=== PATIENT | male | born 1945 | race Two or more races ===

== ENCOUNTER 2024-04-10 11:34 | Inpatient (IN) | payer MEDICAID, OTHER ==
[~2024-04-10] VITALS: Ht 167.6 cm; Wt 67.2 kg
--- NOTE | 2024-04-10 12:23 | DVH ---
Exam: CT CT AB PEL WO CON-NO ORAL OR IV History: Left flank pain Comparison Study: None Technique: Multidetector spiral CT of the abdomen and pelvis was performed from lung bases to pubic symphysis. Imaging was performed without IV contrast. Axial, coronal and sagittal multiplanar reform ats were obtained from the axial data set by the technologist. Radiation dose : Abdomen/Pelvis: CTDIvol 7 mGy, DLP 411.05 mGy*cm. Findings: Evaluation of solid organs is limited due to lack of intravenous contrast use. Lung Bases: No acute or significant lung base finding. Normal heart size. No pleural or pericardial effusion. Liver: The liver is normal in size. No focal lesions. Gallbladder and biliary Tree: Unremarkable Spleen: Unremarkable Pancreas: The pancreas is grossly normal in appearance. Adrenal Glands: Unremarkable Kidneys: Bilateral renal cysts. No hydronephrosis or nephrolithiasis. Bladder: Grossly unremarkable for degree of distention. Bowel: The stomach is grossly normal in appearance. Small bowel and colon are normal in caliber and d istribution. The appendix is not visualized; however, no secondary findings of acute appendicitis id entified. Ascites: Absent Lymphadenopathy: Bulky retroperitoneal lymphadenopathy with largest conglomerate [place] mass measuring up to 56 mm. Abdominal wall and Mesentery: Unremarkable. Vasculature: Calcified atherosclerotic disease. Pelvic Organs: Unremarkable Musculoskeletal: Multilevel degenerative changes in the spine. IMPRESSION: 1. Limited by significant motion. Bulky retroperitoneal lymphadenopathy concerning for malignancy. Recommend further evaluation with CT of the abdomen and pelvis with intravenous contrast. May ultimat yue need CT-guided biopsy of retroperitoneal lymphadenopathy for tissue diagnosis. Radiation optimization: All CT scans at this facility use at least one of these dose optimization singh hniques: Automated exposure control mA and/or kV adjustment per patient size (includes targeted exams where dose is matched to clinical indication) or iterative reconstruction. HS:Y
[2024-04-10] MEDS: ONDANSETRON ODT 4 MG TAB PO ONE (12:38)
[2024-04-10] MEDS: ACETAMINOPHEN 325 MG TAB PO ONE (12:38)
[2024-04-10] MEDS: FAMOTIDINE 20 MG TAB PO ONE (12:38)
[2024-04-10 12:45] LABS: Basophils # (auto) 0 10 ^3/uL (0-0.2); Basophils % (auto) 0.2 % (0.0-2.0); Eosinophils # (auto) 0.1 10 ^3/uL (0-0.8); Eosinophils % (auto) 0.7 % (0.0-7.0); Hematocrit 33.2 % (41.0-53.0); Hemoglobin 11.3 g/dL (13.5-17.5); Lymphocytes # (auto) 0.8 10 ^3/uL (0.4-5.4); Lymphocytes % (auto) 6.4 % (10.0-50.0); Mean Corpuscular Hemoglobin 27.4 pg (28.0-32.0); Mean Corpuscular Hgb Conc. 34.2 g/dL (32.0-36.0); Mean Corpuscular Volume 80.3 fL (80.0-100.0); Monocytes # (auto) 1.6 10 ^3/uL (0-1.3); Monocytes % (auto) 13.2 % (0.0-12.0); Neutrophils # (auto) 9.7 10 ^3/uL (1.6-8.6); Neutrophils % (auto) 79.5 % (37.0-80.0); Nucleated Red Blood Cells % 0.1 %; Platelet Count (auto) 302 10^3/uL (140-450); Red Blood Cells 4.13 10^6/uL (4.5-5.90); Red Cell Distribution Width 15.2 % (11.8-14.3); White Blood Cell 12.2 10^3/uL (4.4-10.8)
[2024-04-10 13:01] LABS: Alanine Aminotransferase 28 U/L (7-40); Albumin 4.3 g/dL (3.2-4.8); Anion Gap 8 (5-15); Aspartate Aminotransferase 26 U/L (13-40); Bilirubin, Total 0.7 mg/dL (0.2-1.0); Blood Urea Nitrogen 14 mg/dL (9-23); Calcium 10.2 mg/dL (8.7-10.4); Carbon Dioxide 27 mmol/L (20-31); Lipase 29 U/L (12-53); Potassium 4.4 mmol/L (3.5-5.1); Total Protein 7.6 g/dL (5.7-8.2)
[2024-04-10 13:05] LABS: Alkaline Phosphatase 126 U/L (46-116); Chloride 90 mmol/L (98-107); Glucose 115 mg/dL (74-106); Sodium 125 mmol/L (136-145)
--- NOTE | 2024-04-10 13:39 | ED.PDOC ---
GI ASSESSMENT HPI Comments 79y M who presents to the ED for chief complaint of abdominal pain. Pt states he has been having abdomianl pain for the past few days getting progressively worse. Pt states the pain is located by the epigastric region, radiating to the LUQ, constant, with no associated exacerbating or relieving factors.Pt has associated nausea but denies vomiting, diarrhea, fever, cough, or chills. Pt otherwise denies any other symptoms at this time. Chief Complaint: Abdominal Pain Time Seen by MD: 13:36 Reviewed Notes: Nurses Notes Allergies: Coded Allergies: NO KNOWN ALLERGIES (Unverified , 04/10/24) Information Source: Patient, Relative Mode of Arrival: Ambulatory Brought in by: family member Past Medical History PAST MEDICAL HISTORY: Denies Surgical History: Unknown Family History Family History: Unknown Social History Smoker: Non-Smoker Alcohol: Denies ETOH Use Drugs: Denies Drug Use Lives In: Home Constitutional: denies: chills, diaphoresis, fatigue, fever, malaise, sweats, weakness, others EENTM: denies: blurred vision, double vision, ear bleeding, ear discharge, ear drainage, ear pain, ear ringing, eye pain, eye redness, hearing loss, mouth pain, mouth swelling, nasal discharge, nose bleeding, nose congestion, nose pain, photophobia, tearing, throat pain, throat swelling, voice changes, others Respiratory: denies: cough, hemoptysis, orthopnea, SOB at rest, shortness of breath, SOB with excertion, stridor, wheezing, others Cardiovascular: denies: chest pain, dizzy spells, diaphoresis, Dyspnea on exertion, edema, irregular heart beat, left arm pain, lightheadedness, palpitations, PND, syncope, others Gastrointestinal: reports: abdominal pain, nausea; denies: abdomen distended, blood streaked bowels, constipated, diarrhea, dysphagia, difficulty swallowing, hematemesis, melena, poor appetite, poor fluid intake, rectal bleeding, rectal pain, vomiting, others Genitourinary: denies: burning, dysuria, flank pain, frequency, hematuria, incontinence, penile discharge, penile sore, pain, testicle pain, testicle swelling, urgency, others Neurological: denies: dizziness, fainting, headache, left sided numbness, left sided weakness, numbness, paresthesia, pre-existing deficit, right sided nu mbness, right sided weakness, seizure, speech problems, tingling, tremors, weakness, others Musculoskeletal: denies: back pain, gout, joint pain, joint swelling, muscle pain, muscle stiffness, neck pain, others Integumetry: denies: bruises, change in color, change in hair/nails, dryness, laceration, lesions, lumps, rash, wounds, others Allergic/Immunocompromised: denies: Difficulty Healing, Frequent Infections, Hives, Itching, others Hematologic/Lymphatic: denies: anemia, blood clots, easy bleeding, easy bruising, swollen glands, others Endocrine: denies: excessive hunger, excessive sweating, excessive thirst, excessive urination, flushing, intolerance to cold, intolerance to heat, unexplained weight gain, unexplained weight loss, others Psychiatric: denies: anxiety, bipolar disorder, depression, hopeless, panic disorder, schizophrenia, sleepless, suicidal, others All Other Systems: Reviewed and Negative Physical Exam General Appearance: Moderate Distress, Thin HEENT: Normal ENT Inspection, Pharynx Normal, TMs Normal Neck: Full Range of Motion, Non-Tender, Normal, Normal Inspection Respiratory: Chest Non-Tender, Lungs Clear, No Accessory Muscle Use, No Respiratory Distress, Normal Breath Sounds Cardiovascular: No Edema, No JVD, No Murmur, No Gallop, Normal Peripheral Pulses, Regular Rate/Rhythm Breast Exam: Deferred Gastrointestinal: Soft, Tenderness, Other (mild diffuse tenderness) Genitalia: Deferred Pelvic: Deferred Rectal: Deferred Extremities: No calf tenderness, Normal capillary refill, Normal inspection, Normal range of motion, Non-tender, No pedal edema Musculoskeletal : Apperance: Normal Neurologic: Alert, certified personal trainer II-XII nml as Tested, No Motor Deficits, Normal Affect, Normal Mood, No Sensory Deficits Cerebellar Function: Normal Reflexes: Normal Skin: Dry, Normal Color, Warm Lymphatic: No Adenopathy Was a procedure done? Was a procedure done?: No GI differential Dx Differential Diagnosis: Appendicitis, Cholangitis, Cholecystitis, Constipation, Diverticular disease, Gastritis/PUD, Gastroenteritis, Pancreatitis, Dehydration, Electrolyte Imbalance, Food Poisoning, Bacterial, Viral, Stress Ulcer, Kidney Stone Other Differential Diagnosis colitis, X-Ray, Labs, Meds, VS Vital Signs Date Time Temp Pulse Resp B/P (MAP) Pulse Ox O2 Delivery O2 Flow Rate FiO2 1/28/25 12:31 77 17 97 Room Air 04/10/24 12:31 98.6 77 17 131/56 (81) 97 98.6 04/10/24 12:07 99.4 75 16 138/52 (80) 95 Lab Test 04/10/24 12:20 Range/Units White Blood Count 12.2 H 4.4-10.8 10^3/uL Red Blood Count 4.13 L 4.5-5.90 10^6/uL Hemoglobin 11.3 L 13.5-17.5 g/dL Hematocrit 33.2 L 41.0-53.0 % Mean Corpuscular Volume 80.3 80.0-100.0 fL Mean Corpuscular Hemoglobin 27.4 L 28.0-32.0 pg Mean Corpuscular Hemoglobin Concent 34.2 32.0-36.0 g/dL Red Cell Distribution Width 15.2 H 11.8-14.3 % Platelet Count 302 140-450 10^3/uL Mean Platelet Volume 6.6 L 6.9-10.8 fL Neutrophils (%) (Auto) 79.5 37.0-80.0 % Lymphocytes (%) (Auto) 6.4 L 10.0-50.0 % Monocytes (%) (Auto) 13.2 H 0.0-12.0 % Eosinophils (%) (Auto) 0.7 0.0-7.0 % Basophils (%) (Auto) 0.2 0.0-2.0 % Neutrophils # (Auto) 9.7 H 1.6-8.6 10 ^3/uL Lymphocytes # (Auto) 0.8 0.4-5.4 10 ^3/uL Monocytes # (Auto) 1.6 H 0-1.3 10 ^3/uL Eosinophils # (Auto) 0.1 0-0.8 10 ^3/uL Basophils # (Auto) 0 0-0.2 10 ^3/uL Nucleated Red Blood Cells 0.1 % Sodium Level 125 L 136-145 mmol/L Potassium Level 4.4 3.5-5.1 mmol/L Chloride Level 90 L 98-107 mmol/L Carbon Dioxide Level 27 20-31 mmol/L Anion Gap 8 5-15 Blood Urea Nitrogen 14 9-23 mg/dL Creatinine 0.56 L 0.700-1.30 mg/dL Glomerular Filtration Rate Calc 101 >90 mL/min BUN/Creatinine Ratio 25.0 H 10.0-20.0 Serum Glucose 115 H 74-106 mg/dL Calcium Level 10.2 8.7-10.4 mg/dL Total Bilirubin 0.7 0.2-1.0 mg/dL Aspartate Amino Transferase (AST) 26 13-40 U/L Alanine Aminotransferase (ALT) 28 7-40 U/L Alkaline Phosphatase 126 H 46-116 U/L Total Protein 7.6 5.7-8.2 g/dL Albumin 4.3 3.2-4.8 g/dL Lipase 29 12-53 U/L Current Medications Medications (Trade) Dose Ordered Sig/Ping Route Start Time Stop Time Status Last Admin Ondansetron HCl (Zofran Po) 4 mg ONCE ONCE PO 04/10/24 12:00 04/10/24 12:01 DC 04/10/24 12:38 Acetaminophen (Tylenol Tablet) 1,000 mg ONCE ONCE PO 04/10/24 12:00 04/10/24 12:01 DC 04/10/24 12:38 Famotidine (Pepcid Tablet) 40 mg ONCE ONCE PO 04/10/24 12:00 04/10/24 12:01 DC 04/10/24 12:38 Sodium Chloride 1,000 ml @ 1,000 mls/hr Q1H ONCE IV 04/10/24 13:45 04/10/24 14:44 04/10/24 13:53 [place] [id number] Ph: [phone] DIAGNOSTIC IMAGING Diagnostic Imaging Report : [id number] Signed PATIENT: DANIKA YUSUF ACCT: [id number] UNIT: [id number] : 1945 LOC: ER ROOM / BED: / AGE / SEX: 79 / M ADM STATUS: REG ER SERVICE 1155 ORDERING PHYSICIAN: VERA WILSON MD PROCEDURE(s): ABPL - CT AB PEL WO CON-NO ORAL OR IV REASON: Left flank pain ORDER NUMBER(s): [id number], ACCESSION NUMBER(s): [id number] Exam: CT CT AB PEL WO CON-NO ORAL OR IV History: Left flank pain Comparison Study: None Technique: Multidetector spiral CT of the abdomen and pelvis was performed from lung bases to pubic symphysis. Imaging was performed without IV contrast. Axial, coronal and sagittal multiplanar reformats were obtained from the axial data set by the technologist. Radiation dose : Abdomen/Pelvis: CTDIvol 7 mGy, DLP 411.05 mGy*cm. Findings: Evaluation of solid organs is limited due to lack of intravenous contrast use. Lung Bases: No acute or significant lung base finding. Normal heart size. No pleural or pericardial effusion. Liver: The liver is normal in size. No focal lesions. Gallbladder and biliary Tree: Unremarkable Spleen: Unremarkable Pancreas: The pancreas is grossly normal in appearance. Adrenal Glands: Unremarkable Kidneys: Bilateral renal cysts. No hydronephrosis or nephrolithiasis. Bladder: Grossly unremarkable for degree of distention. Bowel: The stomach is grossly normal in appearance. Small bowel and colon are normal in caliber and distribution. The appendix is not visualized; however, no secondary findings of acute appendicitis identified. Ascites: Absent Lymphadenopathy: Bulky retroperitoneal lymphadenopathy with largest conglomerate [place] mass measuring up to 56 mm. Abdominal wall and Mesentery: Unremarkable. Vasculature: Calcified atherosclerotic disease. Pelvic Organs: Unremarkable Musculoskeletal: Multilevel degenerative changes in the spine. IMPRESSION: 1. Limited by significant motion. Bulky retroperitoneal lymphadenopathy concerning for malignancy. Recommend further evaluation with CT of the abdomen and pelvis with intravenous contrast. May ultimately need CT-guided biopsy of retroperitoneal lymphadenopathy for tissue diagnosis. Radiation optimization: All CT scans at this facility use at least one of these dose optimization techniques: Automated exposure control mA and/or kV adjustment per patient size (includes targeted exams where dose is matched to clinical indication) or iterative reconstruction. HS:Y ATED BY: STEVE AGUIRRE MD DICTATED DATE/TIME: 04/10/24 122 SIGNED BY: STEVE AGUIRRE MD SIGNED DATE/TIME: 04/10/241219 CC: Time of 1ST Reevaluation: 14:10 Reevaluation 1ST: Unchanged Time of 2ND Reevaluation: 13:55 Reevaluation 2ND: Unchanged Patient Education/Counseling: Diagnosis, Treatment Family Education/Counseling: Diagnosis, Treatment Departure 1 Departure Time of Disposition: 13:55 Impression: Primary Impression: Lymphoma Additional Impression: Hyponatremia Disposition: 09 ADMITTED INPATIENT Admit to: Med Surg Condition: Guarded Discharged With: Self Critical Care Note Critical Care Time?: Yes (45 min-critical care time only) Critical care comment: Total critical care time: Approximately 36 minutes Due to a high probability of clinically significant, life threatening deterioration, the patient required my highest level of preparedness to intervene emergently and I personally spent this critical care time directly and personally managing the patient. This critical care time included obtaining a history; examining the patient; pulse oximetry; ordering and review of studies; arranging urgent treatment with development of a management plan; evaluation of patient's response to treatment; frequent reassessment; and, discussions with other providers. This critical care time was performed to assess and manage the high probability of imminent, life-threatening deterioration that could result in multi-organ failure. It was exclusive of separately billable procedures and treating other patients. Stability Stability form required: No Heart Score Heart Score: Heart Score Response (Comments) Value History N/A 0 EKG N/A 0 Age N/A 0 Risk Factors N/A 0 Troponin N/A 0 Total 0 I personally scribed for VERA WILSON MD ([email or web address]) on 04/10/24 at 13:39. Electronically submitted by Leydi Laboy ([email or web address]). VERA WILSON MD Apr 10, 2024 13:39
[2024-04-10] MEDS: SODIUM CHLORIDE 0.9% 1,000 ML IV ONE (13:53)
[2024-04-10] MEDS ORDERED: ACETAMINOPHEN 325 MG TAB PO PRN (22:45)
[2024-04-10] MEDS ORDERED: ONDANSETRON ODT 4 MG TAB PO PRN (22:45)
[2024-04-10] MEDS: IOHEXOL 300 MG/ML 100ML BOTTLE IJ ONE (23:14)
--- NOTE | 2024-04-10 23:24 | DVH ---
EXAMINATION: AP portable chest radiograph CLINICAL HISTORY: cough COMPARISON: None FINDINGS: Mild central interstitial prominence. No lobar consolidation identified. No sizable pleural effusion or pneumothorax. The cardiomediastinal silhouette appears within normal limits given technique. Advanced arthritic changes of the left imaged shoulder. IMPRESSION: Mild central interstitial prominence is relatively nonspecific but can be seen with edema, reactive a irway changes as well as atypical / viral infection. Please correlate clinically. Otherwise no domina nt consolidation identified at this time.
[2024-04-10 23:46] VITALS: PULSE 84; RESP 19; O2SAT 94
[2024-04-11] VITALS (8 sets, daily range): BP systolic 135–170; BP diastolic 59–72; PULSE 67–79; RESP 16–20; TEMP 97.8–98.9; O2SAT 95–99
[2024-04-11] MEDS: amLODIPine BESYLATE 5 MG TAB PO ONE (00:46)
[2024-04-11] MEDS: DICYCLOMINE HCL 10 MG CAP PO PRN (01:19)
[2024-04-11] MEDS: SODIUM CHLORIDE 0.9% 1,000 ML IV SCH (01:43)
--- NOTE | 2024-04-11 02:04 | DVH ---
CLINICAL HISTORY: malignancy TECHNIQUE: CT of the chest, abdomen and pelvis was performed with IV contrast. This exam was performe d according to our departmental dose optimization program. Up-to-date CT equipment and radiation dose reduction techniques are utilized as appropriate. CTDI: [CTDIvol] DLP: 866.84 COMPARISON: None FINDINGS: CHEST FINDINGS: Lower Neck: Right supraclavicular lymphadenopathy. There is a hypodense left thyroid nodule on series 2, image 22 measuring 1.2 cm. Axilla, Mediastinum and Anahy: No axillary or hilar lymphadenopathy. Mediastinal lymphadenopathy with a large conglomerate mediastinal lymph node in the upper right mediastinum measuring 4.5 x 4.6 cm on series 2, image 31. Mild wall thickening of the esophagus. Heart and Great Vessels: Upper limits of normal sized heart with trace pericardial effusion. Moderate aortic valve calcifications. Thoracic aorta is patent and normal caliber containing [id number] e calcified atherosclerotic plaque. Arch origin of the left vertebral artery, normal variant. The sagrario tral pulmonary arteries are patent. 3-vessel coronary artery calcifications up to moderate. Airway, Lungs and Pleura: Unremarkable. Chest Wall and Osseous Structures: Marked left and [id number] right glenohumeral arthrosis. M ultilevel thoracic spondylosis. No destructive osseous lesion. Abdomen and Pelvis Findings: Liver and Biliary system: Unremarkable. Spleen: Unremarkable. Adrenal Glands and Kidneys: Mild Thickening of the bilateral adrenal glands. No hydronephrosis or nep hrolithiasis. There are bilateral renal cysts although some renal hypodensities are too small to vero racterize Pancreas and Retroperitoneum: Atrophic pancreas. Conglomerate retroperitoneal lymphadenopathy. A rep resentative left paratracheal lymph node measures 5.2 x 5.8 cm on series 2, image 135. Aorta and Major Vessels: Aortoiliac vessels are patent and normal caliber with [id number] calci fied atherosclerotic plaque Bowel, Mesentery and Peritoneal space: Small and large bowel loops are normal in caliber. Moderate re tained stool in the colon. Mild ascites. There is no free air or fluid collection. Pelvis: Prostatomegaly. The urinary bladder is moderately distended with mild wall thickening. No pat hologically enlarged pelvic lymph nodes. Abdominal wall and Osseous Structures: No destructive osseous lesion. Moderate multilevel lumbar spon dylosis. There is high position of the right testicle in the inguinal canal. Small fat containing lef t inguinal hernia. IMPRESSION: 1. Mediastinal, right supraclavicular, and retroperitoneal lymphadenopathy concerning for malignancy. This could be metastatic or lymphoma. 2. Moderate aortic valve and 3-vessel coronary artery calcifications. 3. Mild ascites. 4. Mild prostatomegaly and mild bladder wall thickening which may be due to chronic bladder outlet ob struction in the setting of prostatomegaly. Correlate with urinalysis if there is clinical concern f or cystitis. 5. High position of the right testicle in the right inguinal canal.
[2024-04-11] MEDS ORDERED: CARV3.1240 PO (03:05)
[2024-04-11] MEDS ORDERED: ATOR20TA PO (03:05)
[2024-04-11] MEDS ORDERED: BENA-36 PO (03:05)
[2024-04-11] MEDS ORDERED: TRAZ-228 PO (03:05)
[2024-04-11] MEDS ORDERED: GABA-1308 PO (03:07)
[2024-04-11] MEDS ORDERED: AML5T PO (03:07)
[2024-04-11] MEDS ORDERED: FAMO20TA10 PO (03:07)
[2024-04-11] MEDS ORDERED: POLYETHYLENE GLYCOL 17 GM PWDR PO ONE (03:30)
--- NOTE | 2024-04-11 03:32 | DVHHPRES ---
History of Present Illness Resident Creating Document: DYAN SHIELDS History of Present Illness Patient is a 79-year-old male with past medical history of lymphoma diagnosed 7 years ago, who came in due to abdominal pain. According to the patient, he has been experiencing abdominal pain for the past 4 days, dull in nature, 8/10 in intensity without any exacerbating or relieving factors and associated with nausea and lack of appetite. Patient localizes the pain to the midepigastric- lower abdominal area. Denies any history of recent weight loss. Patient is a poor historian. On review of systems patient is complaining of rhinorrhea, sore throat, nausea. CT abdomen pelvis showed retroperitoneal lymphadenopathy. CT chest abdomen pelvis with IV contrast was ordered which showed Mediastinal, right supraclavicular, and retroperitoneal lymphadenopathy concerning for malignancy. This could be metastatic or lymphoma.Moderate aortic valve and 3- vessel coronary artery calcifications.Mild ascites. Mild prostatomegaly and mild bladder wall thickening which may be due to chronic bladder outlet obstruction in the setting of prostatomegaly. Correlate with urinalysis if there is clinical concern for cystitis. High position of the right testicle in the right inguinal canal. Past Medical History Lymphoma Past Surgical History Denies Smoke: No ALCOHOL: none Drugs: None Lives: with Family Review of Systems Constitutional: No: Fever, Chills, Sweats, Weakness, Malaise, Other Eyes: No: Pain, Vision change, Conjunctivae inflammation, Eyelid inflammation, Other, Redness ENT: Nose discharge, Throat pain; No: Ear pain, Ear discharge, Nose pain, Nose congestion, Mouth pain, Mouth swelling, Throat swelling, Other Respiratory: No: Cough, Dry, Shortness of breath, SOB with excertion, Wheezing, Hemoptysis, Pleuritic Pain, Sputum, Wheezing, Other Cardiovascular: No: Chest Pain, Palpitations, Orthopnea, Paroxysmal Noc. Dyspnea, Edema, Lt Headedness, Other Gastrointestinal: Nausea, Abdominal Pain; No: Vomiting, Diarrhea, Constipation, Melena, Hematochezia, Other Genitourinary: No Dysuria, No Frequency, No Incontinence, No Hematuria; Retention; No Other Musculoskeletal: No: other, neck pain, shoulder pain, arm pain, back pain, hand pain, leg pain, foot pain Skin: No: Rash, Lesions, Jaundice, Bruising, Other Neurological: No: Weakness, Numbness, Incoordination, Change in speech, Confusion, Seizures, Other Allergies: Coded Allergies: NO KNOWN ALLERGIES (Unverified , 04/10/24) Medications Current Medications Medications Dose Ordered Sig/Ping Route Start Time Stop Time Status Last Admin Dose Admin Acetaminophen 650 mg Q6HP PRN PO 04/10/24 22:45 Enoxaparin Sodium 40 mg DAILY SC 04/11/24 10:00 Dicyclomine HCl 10 mg PRN PRN PO 04/10/24 22:45 04/11/24 01:19 10 MG Ondansetron HCl 4 mg Q6HP PRN PO 04/10/24 22:45 Amlodipine Besylate 5 mg DAILY PO 04/11/24 10:00 Sodium Chloride 1,000 ml @ 75 mls/hr [id number] IV 04/10/24 22:45 04/11/24 01:43 75 MLS/HR Exam Vital Signs Vital Signs Date Time Temp Pulse Resp B/P (MAP) Pulse Ox O2 Delivery O2 Flow Rate FiO2 04/11/24 03:05 70 16 170/68 (102) 98 04/11/24 01:30 97.9 97.9 04/11/24 00:47 Room Air 04/10/24 23:46 0 21 General Appearance: Alert, Oriented X3, Cooperative, No acute distress HEENT: Atraumatic, PERRLA, EOMI Respiratory: Clear to auscultation, Normal air movement Cardiovascular: Regular rate, Normal S1, Normal S2, Other (Systolic murmur heard) Abdominal: Normal bowel sounds, Other (Soft but distended, tenderness to palpation in the midepigastric area with radiation to the left upper quadrant) Extremities: No clubbing, No edema, Normal pulses Skin: No breakdown, No significant lesion Neuro: Normal gait, Normal speech, Strength at 5/5 X4 ext, Sensation intact Psych/Mental Status: Mental status NL, Mood NL Labs/Xrays Labs Test 04/10/24 23:11 04/10/24 12:20 Range/Units Serum Osmolality 272 L 278-298 mOsm/kg Lactic Acid Level 0.8 0.4-2.0 mmol/L Thyroid Stimulating Hormone (TSH) 3.50 0.55-4.78 uIU/mL White Blood Count 12.2 H 4.4-10.8 10^3/uL Red Blood Count 4.13 L 4.5-5.90 10^6/uL Hemoglobin 11.3 L 13.5-17.5 g/dL Hematocrit 33.2 L 41.0-53.0 % Mean Corpuscular Volume 80.3 80.0-100.0 fL Mean Corpuscular Hemoglobin 27.4 L 28.0-32.0 pg Mean Corpuscular Hemoglobin Concent 34.2 32.0-36.0 g/dL Red Cell Distribution Width 15.2 H 11.8-14.3 % Platelet Count 302 140-450 10^3/uL Mean Platelet Volume 6.6 L 6.9-10.8 fL Neutrophils (%) (Auto) 79.5 37.0-80.0 % Lymphocytes (%) (Auto) 6.4 L 10.0-50.0 % Monocytes (%) (Auto) 13.2 H 0.0-12.0 % Eosinophils (%) (Auto) 0.7 0.0-7.0 % Basophils (%) (Auto) 0.2 0.0-2.0 % Neutrophils # (Auto) 9.7 H 1.6-8.6 10 ^3/uL Lymphocytes # (Auto) 0.8 0.4-5.4 10 ^3/uL Monocytes # (Auto) 1.6 H 0-1.3 10 ^3/uL Eosinophils # (Auto) 0.1 0-0.8 10 ^3/uL Basophils # (Auto) 0 0-0.2 10 ^3/uL Nucleated Red Blood Cells 0.1 % Sodium Level 125 L 136-145 mmol/L Potassium Level 4.4 3.5-5.1 mmol/L Chloride Level 90 L 98-107 mmol/L Carbon Dioxide Level 27 20-31 mmol/L Anion Gap 8 5-15 Blood Urea Nitrogen 14 9-23 mg/dL Creatinine 0.56 L 0.700-1.30 mg/dL Glomerular Filtration Rate Calc 101 >90 mL/min BUN/Creatinine Ratio 25.0 H 10.0-20.0 Serum Glucose 115 H 74-106 mg/dL Calcium Level 10.2 8.7-10.4 mg/dL Total Bilirubin 0.7 0.2-1.0 mg/dL Aspartate Amino Transferase (AST) 26 13-40 U/L Alanine Aminotransferase (ALT) 28 7-40 U/L Alkaline Phosphatase 126 H 46-116 U/L Total Protein 7.6 5.7-8.2 g/dL Albumin 4.3 3.2-4.8 g/dL Lipase 29 12-53 U/L Assessment/Plan Assessment/Plan Acute intractable abdominal pain likely due to a viral syndrome vs contipation vs ileus? Mild ascites Hypotonic hyponatremia possibly SIADH - CTAP: Limited by significant motion. Bulky retroperitoneal lymphadenopathy concerning for malignancy. Recommend further evaluation with CT of the abdomen and pelvis with intravenous contrast. May ultimately need CT-guided biopsy of retroperitoneal lymphadenopathy for tissue diagnosis. - CT chest abdomen pelvis with IV contrast: Mediastinal, right supraclavicular, and retroperitoneal lymphadenopathy concerning for malignancy. This could be metastatic or lymphoma. Moderate aortic valve and 3-vessel coronary artery calcifications. Mild ascites. Mild prostatomegaly and mild bladder wall thickening which may be due to chronic bladder outlet obstruction in the setting of prostatomegaly. Correlate with urinalysis if there is clinical concern for cystitis. High position of the right testicle in the right inguinal canal. - CXR: Mild central interstitial prominence is relatively nonspecific but can be seen with edema, reactive airway changes as well as atypical / viral infection. Please correlate clinically. Otherwise no dominant consolidation identified at this time. - last bowel movement on 04/10/2024; positive bowel sounds - serum Na 125-->127; serom osm 272 - pending UA, urine sodium and urine osm - IV NS 1L bolus, IV NS @ 75cc/hr - miralax 17g - full liquid diet - dicyclomine, zofran prn - ordered echo - bladder scan - hepatitis panel Hypertension - resumed home medication amlodipine 5mg - IV hydralazine 5mg once History of lymphoma - requested records from previous hospitalization DVT prophylaxis: Levonox 40mg Goals of care: Full code, discussed for >16 minutes on 04/10/2024 Plan discussed with patient Plan discussed with Dr. Henderson Plan discussed with: Patient, Other (RN) My Orders Orders - DYAN SHIELDS RESIDENT Procedure Category Date Status Time Admit ADMIT 04/10/24 Transmitted 22:38 Code Status CODE 04/10/24 Transmitted 22:38 Vital Signs PATRICIA 04/10/24 In Process 22:38 Review Orders With PATRICIA 04/10/24 In Process Adm. 22:38 Regular Diet DIET 04/11/24 Transmitted Breakfast Acetaminophen Tablet PHA 04/10/24 In Process (Tylenol Tablet) 22:45 Advance Directive PATRICIA 04/10/24 In Process 22:38 Blood Culture VALERY 04/10/24 In Process 22:38 Urine Bacterial VALERY 04/10/24 Logged Culture 22:38 Patient Condition ORDERS 04/10/24 Transmitted 22:38 Allergies PATRICIA 04/10/24 In Process 22:38 Enoxaparin Sodium PHA 04/11/24 In Process (Lovenox) 10:00 Notify Md Of Changes PATRICIA 04/10/24 In Process From Base 22:38 Urine Sodium LAB 04/10/24 Logged 22:38 Urinalysis LAB 04/10/24 Logged 22:38 Chest Portable XY 04/10/24 Resulted 22:38 Echo 2d Mode Cardiac US 04/10/24 Logged DOP 22:38 Full Liq Diet DIET 04/11/24 Transmitted Breakfast Dicyclomine Capsule PHA 04/10/24 In Process (Bentyl Capsule) 22:45 Ondansetron Po PHA 04/10/24 In Process (Zofran Po) 22:45 Amlodipine Tablet PHA 04/11/24 In Process (Norvasc Tablet) 10:00 Sodium Chloride 0.9% PHA 04/10/24 In Process 22:45 Ct Chest/Ab/Pl W Con- CT 04/10/24 Resulted Iv Only 22:46 Sodium LAB 04/11/24 Logged 03:13 Rapid Influenza A&B LAB 04/11/24 Logged 03:14 Covid19 Antigen Paula LAB 04/11/24 Logged Bladder Scan ORDERS 04/11/24 Transmitted 03:14 Ebv Acute Infection LAB 04/11/24 Logged Antibodies 03:14 Rapid Strep Screen - LAB 04/11/24 Logged Throat 03:14 Acute Hepatitis Panel LAB 04/11/24 Logged 03:14 Date of Service: Apr 10, 2024 Billing Provider: SHAHANA ARZOLA MD Common Visit Codes: 07823-[id number] INP/OBS CARE (HIGH) DYAN SHIELDS RESIDENT Apr 11, 2024 03:32 SHAHANA ARZOLA MD Apr 11, 2024 23:15
[2024-04-11] MEDS: hydrALAZINE HCL 20 MG/ML VL IV ONE (03:57)
[2024-04-11] MEDS: MELATONIN 5 MG TAB PO ONE (04:14)
[2024-04-11 04:18] LABS: Basophils # (auto) 0 10 ^3/uL (0-0.2); Basophils % (auto) 0.4 % (0.0-2.0); Eosinophils # (auto) 0.1 10 ^3/uL (0-0.8); Eosinophils % (auto) 1.5 % (0.0-7.0); Hematocrit 31.9 % (41.0-53.0); Lymphocytes # (auto) 0.6 10 ^3/uL (0.4-5.4); Lymphocytes % (auto) 6.9 % (10.0-50.0); Mean Corpuscular Hemoglobin 27.9 pg (28.0-32.0); Mean Corpuscular Hgb Conc. 34.5 g/dL (32.0-36.0); Monocytes # (auto) 1.3 10 ^3/uL (0-1.3); Monocytes % (auto) 14.4 % (0.0-12.0); Neutrophils # (auto) 6.7 10 ^3/uL (1.6-8.6); Neutrophils % (auto) 76.8 % (37.0-80.0); Platelet Count (auto) 278 10^3/uL (140-450); Red Blood Cells 3.94 10^6/uL (4.5-5.90); Red Cell Distribution Width 15.2 % (11.8-14.3); White Blood Cell 8.7 10^3/uL (4.4-10.8)
[2024-04-11 04:29] LABS: Rapid Strep A Screen-Throat Negative
[2024-04-11 05:03] LABS: COVID19 ANTIGEN SOFIA FIA NEGATIVE (NEGATIVE); Rapid Influenza A Negative (Negative); Rapid Influenza B Negative (Negative)
[2024-04-11 05:07] LABS: Potassium 3.7 mmol/L (3.5-5.1)
[2024-04-11 05:08] LABS: Anion Gap 8 (5-15); Carbon Dioxide 26 mmol/L (20-31)
[2024-04-11 05:09] LABS: Calcium 9.8 mg/dL (8.7-10.4)
[2024-04-11 05:14] LABS: BUN/Creatinine Ratio 15.7 (10.0-20.0)
[2024-04-11 05:15] LABS: Blood Urea Nitrogen 8 mg/dL (9-23); Chloride 93 mmol/L (98-107); Glucose 121 mg/dL (74-106); Sodium 127 mmol/L (136-145)
[2024-04-11] MEDS: HYDROmorphone HCL 2 MG/ML VL/or syr IV ONE (05:17)
--- NOTE | 2024-04-11 06:02 | DVH ---
ABDOMINAL RADIOGRAPH Indication: Severe pain Technique: 2 frontal radiographs of the abdomen were obtained Comparison: None FINDINGS: Lines and tubes: None There is gaseous distention of small and large bowel loops. No supine radiographic evidence of pneumo peritoneum. Bony structures unremarkable. IMPRESSION: 1. Gaseous distention of small and large bowel loops which may represent ileus in the appropriate cli nical setting.
[2024-04-11] MEDS: amLODIPine BESYLATE 5 MG TAB PO SCH (09:36)
[2024-04-11] MEDS: ENOXAPARIN SOD 40 MG/0.4 ML SYRINGE SC SCH (09:36)
[2024-04-11] MEDS ORDERED: ENOXAPARIN SOD 40 MG/0.4 ML SYRINGE SC SCH (10:00)
--- NOTE | 2024-04-11 14:25 | DVHSR ---
APPROVED REPORT EXAM: Two-dimensional and M-mode echocardiogram with Doppler and color Doppler. Blood Pressure: 144/57 mmHg INDICATION Cough RISK FACTORS Height: 5'6", Weight: 148 DIMENSIONS LVDd4.5 (3.8-5.7cm)LA (2D)4.6 (1.9-4.0cm)Aortic Root3.4 (2.0-3.7cm) LVDs2.6 (2.5-4.0cm)LA (MM) (1.9-4.0cm)Aortic Cusp Exc0.9 (1.5-2.0cm) EF (%) 65.0 (55-70%)Rt. Atrium4.2 (1.9-4.0cm)Asc. Aorta3.6 cm IVSd1.3 (0.7-1.1cm)RV (D)3.4 (1.8-2.4cm) PWd1.0 (0.7-1.1cm) Mitral Valve MitralMitral Stenosis E wave0.69m/sMV Mean GR.mmHg A wave1.00m/sMV Peak GR.mmHg E/A ratio0.72D MVAcm2 DECEL [id number] 1/2 Timems Aortic Valve Aortic ValveAortic Stenosis V10.86m/Javi Mean GR.19mmHg V22.90m/Javi Peak GR.34mmHg LVOT Diameter2.4 (1.8-2.4cm)Doppler AVA1.34cm2 AI P 1/2 Fkmt357.85ms Pulmonic Valve V21.03m/s Tricuspid Valve TR Velocity2.31m/s [id number] LEFT VENTRICLE The left ventricle is of normal size. Wall thickness is mildly increased most prominent in the septu m. Ejection fraction is normal and is estimated at 65%. There is no gross wall motion abnormalities . There is grade II diastolic dysfunction with evidence of elevated left-sided filling pressure. RIGHT VENTRICLE The right ventricle is of normal size. Systolic function is normal. ATRIA The left atrium is mildly dilated in size. Right atrium is of normal size. Intra-atrial septum is l ikely normal. MITRAL VALVE Normal in structure and function. No significant mitral regurgitation. PULMONIC VALVE Likely normal. TRICUSPID VALVE Normal structure and function. There is mild tricuspid regurgitation. PA systolic pressure is estim ated at 30-35 mm Hg. AORTIC VALVE The aortic valve leaflets are moderately to severely calcified. There is moderate aortic valve steno sis with a peak velocity of 2.9 m/sec and a mean gradient of 19 mm Hg. There is [id number] ins ufficiency. Aortic valve area is estimated at 1.3 cm2. GREAT VESSELS The aortic root and proximal ascending aorta are of normal size. PERICARDIAL EFFUSION No significant effusion. IVC is of normal size and collapses normally with inspiration. Conclusion Calcified aortic valve with moderate aortic stenosis and [id number] insufficiency. Normal left ventricular size and systolic function. Ejection fraction is estimated at 65%. Normal right ventricular size and systolic function. Grade diastolic dysfunction with evidence of elevated left-sided filling pressure. PA systolic pressure is estimated at 30-35 mm Hg.
[2024-04-11] MEDS ORDERED: LEVO750T40 PO ×2 (14:37→20:03)
[2024-04-11] MEDS: hydrALAZINE HCL 20 MG/ML VL IV PRN (15:39)
--- NOTE | 2024-04-11 15:54 | DVHDSRES ---
Discharge Summary Date of Admission Resident Creating Document: ZENAJO-ANN TRENT RESIDENT Apr 10, 2024 at 22:38 Date of Discharge: Apr 11, 2024 Admitting Diagnosis Abdominal pain Labs/Diagnostic Data: PATIENT: GOPI TRAN: [id number] UNIT: [id number] : 1945 LOC: EAST ROOM / BED: 0246 / B AGE / SEX: 79 / M ADM STATUS: ADM IN SERVICE 0453 ORDERING PHYSICIAN: DYAN SHIELDS PROCEDURE(s): KUB - KUB ABDOMEN SINGLE VIEW REASON: severe pain ORDER NUMBER(s): [id number], ACCESSION NUMBER(s): [id number] ABDOMINAL RADIOGRAPH Indication: Severe pain Technique: 2 frontal radiographs of the abdomen were obtained Comparison: None FINDINGS: Lines and tubes: None There is gaseous distention of small and large bowel loops. No supine radiographic evidence of pneumoperitoneum. Bony structures unremarkable. IMPRESSION: 1. Gaseous distention of small and large bowel loops which may represent ileus in the appropriate clinical setting. ENT: IDA TRANCT: [id number] UNIT: [id number] : 1945 LOC: OVERFLOW ROOM / BED: [facility] / A AGE / SEX: 79 / M ADM STATUS: ADM IN SERVICE 2246 ORDERING PHYSICIAN: DYAN SHIELDS PROCEDURE(s): CAPIV - CT CHEST/AB/PL W CON- IV ONLY REASON: malignancy ORDER NUMBER(s): [id number], ACCESSION NUMBER(s): [id number] CLINICAL HISTORY: malignancy TECHNIQUE: CT of the chest, abdomen and pelvis was performed with IV contrast. This exam was performed according to our departmental dose optimization program. Up-to-date CT equipment and radiation dose reduction techniques are utilized as appropriate. CTDI: [CTDIvol] DLP: 866.84 COMPARISON: None FINDINGS: CHEST FINDINGS: Lower Neck: Right supraclavicular lymphadenopathy. There is a hypodense left thyroid nodule on series 2, image 22 measuring 1.2 cm. Axilla, Mediastinum and Anahy: No axillary or hilar lymphadenopathy. Mediastinal lymphadenopathy with a large conglomerate mediastinal lymph node in the upper right mediastinum measuring 4.5 x 4.6 cm on series 2, image 31. Mild wall thickening of the esophagus. Heart and Great Vessels: Upper limits of normal sized heart with trace pericardial effusion. Moderate aortic valve calcifications. Thoracic aorta is patent and normal caliber containing wquq-vk-rmzoviit calcified atherosclerotic plaque. Arch origin of the left vertebral artery, normal variant. The central pulmonary arteries are patent. 3-vessel coronary artery calcifications up to moderate. Airway, Lungs and Pleura: Unremarkable. Chest Wall and Osseous Structures: Marked left and nvkhnztk-vm-cvlsbs right glenohumeral arthrosis. Multilevel thoracic spondylosis. No destructive osseous lesion. Abdomen and Pelvis Findings: Liver and Biliary system: Unremarkable. Spleen: Unremarkable. Adrenal Glands and Kidneys: Mild Thickening of the bilateral adrenal glands. No hydronephrosis or nephrolithiasis. There are bilateral renal cysts although some renal hypodensities are too small to characterize Pancreas and Retroperitoneum: Atrophic pancreas. Conglomerate retroperitoneal lymphadenopathy. A quality control representative left paratracheal lymph node measures 5.2 x 5.8 cm on series 2, image 135. Aorta and Major Vessels: Aortoiliac vessels are patent and normal caliber with onrc-tz-hnkacitx calcified atherosclerotic plaque Bowel, Mesentery and Peritoneal space: Small and large bowel loops are normal in caliber. Moderate retained stool in the colon. Mild ascites. There is no free air or fluid collection. Pelvis: Prostatomegaly. The urinary bladder is moderately distended with mild wall thickening. No pathologically enlarged pelvic lymph nodes. Abdominal wall and Osseous Structures: No destructive osseous lesion. Moderate multilevel lumbar spondylosis. There is high position of the right testicle in the inguinal canal. Small fat containing left inguinal hernia. IMPRESSION: 1. Mediastinal, right supraclavicular, and retroperitoneal lymphadenopathy concerning for malignancy. This could be metastatic or lymphoma. 2. Moderate aortic valve and 3-vessel coronary artery calcifications. 3. Mild ascites. 4. Mild prostatomegaly and mild bladder wall thickening which may be due to chronic bladder outlet obstruction in the setting of prostatomegaly. Correlate with urinalysis if there is clinical concern for cystitis. 5. High position of the right testicle in the right inguinal canal. ATED BY: RACHID VITALE MD DICTATED DATE/TIME: 04/11/24 0201 PATIENT: TOM TRANOACCT: [id number] UNIT: [id number] : 1945 LOC: OVERFLOW [facility]OM [facility] AGE / SEX: 79 / M ADM STATUS: ADM IN SERVICE 2238 ORDERING PHYSICIAN: DYAN SHIELDS PROCEDURE(s): CXRP - CHEST PORTABLE REASON: cough ORDER NUMBER(s): [id number], ACCESSION NUMBER(s): [id number] EXAMINATION: AP portable chest radiograph CLINICAL HISTORY: cough COMPARISON: None FINDINGS: Mild central interstitial prominence. No lobar consolidation identified. No sizable pleural effusion or pneumothorax. The cardiomediastinal silhouette appears within normal limits given technique. Advanced arthritic changes of the left imaged shoulder. IMPRESSION: Mild central interstitial prominence is relatively nonspecific but can be seen with edema, reactive airway changes as well as atypical / viral infection. Please correlate clinically. Otherwise no dominant consolidation identified at this time. ATED BY: FOX MONAE MD DICTATED DATE/TIME: 04/10/24 2321 PATIENT: DANIKA YUSUF ACCT: [id number] UNIT: [id number] : 1945 LOC: ER ROOM / BED: / AGE / SEX: 79 / M ADM STATUS: REG ER SERVICE 1155 ORDERING PHYSICIAN: VERA WILSON MD PROCEDURE(s): ABPL - CT AB PEL WO CON-NO ORAL OR IV REASON: Left flank pain ORDER NUMBER(s): [id number], ACCESSION NUMBER(s): [id number] Exam: CT CT AB PEL WO CON-NO ORAL OR IV History: Left flank pain Comparison Study: None Technique: Multidetector spiral CT of the abdomen and pelvis was performed from lung bases to pubic symphysis. Imaging was performed without IV contrast. Axial, coronal and sagittal multiplanar reformats were obtained from the axial data set by the technologist. Radiation dose : Abdomen/Pelvis: CTDIvol 7 mGy, DLP 411.05 mGy*cm. Findings: Evaluation of solid organs is limited due to lack of intravenous contrast use. Lung Bases: No acute or significant lung base finding. Normal heart size. No pleural or pericardial effusion. Liver: The liver is normal in size. No focal lesions. Gallbladder and biliary Tree: Unremarkable Spleen: Unremarkable Pancreas: The pancreas is grossly normal in appearance. Adrenal Glands: Unremarkable Kidneys: Bilateral renal cysts. No hydronephrosis or nephrolithiasis. Bladder: Grossly unremarkable for degree of distention. Bowel: The stomach is grossly normal in appearance. Small bowel and colon are normal in caliber and distribution. The appendix is not visualized; however, no secondary findings of acute appendicitis identified. Ascites: Absent Lymphadenopathy: Bulky retroperitoneal lymphadenopathy with largest conglomerate [place] mass measuring up to 56 mm. Abdominal wall and Mesentery: Unremarkable. Vasculature: Calcified atherosclerotic disease. Pelvic Organs: Unremarkable Musculoskeletal: Multilevel degenerative changes in the spine. IMPRESSION: 1. Limited by significant motion. Bulky retroperitoneal lymphadenopathy concerning for malignancy. Recommend further evaluation with CT of the abdomen and pelvis with intravenous contrast. May ultimately need CT-guided biopsy of retroperitoneal lymphadenopathy for tissue diagnosis. Radiation optimization: All CT scans at this facility use at least one of these dose optimization techniques: Automated exposure control mA and/or kV adjustment per patient size (includes targeted exams where dose is matched to clinical indication) or iterative reconstruction. HS:Y ATED BY: STEVE AGUIRRE MD DICTATED DATE/TIME: 04/10/24 1220 Laboratory Results Test 04/11/24 03:40 04/11/24 03:35 04/10/24 23:11 04/10/24 12:20 White Blood Count 8.7 10^3/uL (4.4-10.8) Red Blood Count 3.94 10^6/uL (4.5-5.90) Hemoglobin 11.0 g/dL (13.5-17.5) Hematocrit 31.9 % (41.0-53.0) Mean Corpuscular Volume 81.0 fL (80.0-100.0) Mean Corpuscular Hemoglobin 27.9 pg (28.0-32.0) Mean Corpuscular Hemoglobin Concent 34.5 g/dL (32.0-36.0) Red Cell Distribution Width 15.2 % (11.8-14.3) Platelet Count 278 10^3/uL (140-450) Mean Platelet Volume 6.6 fL (6.9-10.8) Neutrophils (%) (Auto) 76.8 % (37.0-80.0) Lymphocytes (%) (Auto) 6.9 % (10.0-50.0) Monocytes (%) (Auto) 14.4 % (0.0-12.0) Eosinophils (%) (Auto) 1.5 % (0.0-7.0) Basophils (%) (Auto) 0.4 % (0.0-2.0) Neutrophils # (Auto) 6.7 10 ^3/uL (1.6-8.6) Lymphocytes # (Auto) 0.6 10 ^3/uL (0.4-5.4) Monocytes # (Auto) 1.3 10 ^3/uL (0-1.3) Eosinophils # (Auto) 0.1 10 ^3/uL (0-0.8) Basophils # (Auto) 0 10 ^3/uL (0-0.2) Nucleated Red Blood Cells 0.0 % Sodium Level 127 mmol/L (136-145) Potassium Level 3.7 mmol/L (3.5-5.1) Chloride Level 93 mmol/L (98-107) Carbon Dioxide Level 26 mmol/L (20-31) Anion Gap 8 (5-15) Blood Urea Nitrogen 8 mg/dL (9-23) Creatinine 0.51 mg/dL (0.700-1.30) Glomerular Filtration Rate Calc 104 mL/min (>90) BUN/Creatinine Ratio 15.7 (10.0-20.0) Serum Glucose 121 mg/dL (74-106) Calcium Level 9.8 mg/dL (8.7-10.4) Influenza Type A Antigen Negative (Negative) Influenza Type B Antigen Negative (Negative) SARS-CoV-2 Antigen (Rapid) Negative (NEGATIVE) Group A Streptococcus Rapid Negative Serum Osmolality 272 mOsm/kg (278-298) Lactic Acid Level 0.8 mmol/L (0.4-2.0) Thyroid Stimulating Hormone (TSH) 3.50 uIU/mL (0.55-4.78) Total Bilirubin 0.7 mg/dL (0.2-1.0) Aspartate Amino Transferase (AST) 26 U/L (13-40) Alanine Aminotransferase (ALT) 28 U/L (7-40) Alkaline Phosphatase 126 U/L (46-116) Total Protein 7.6 g/dL (5.7-8.2) Albumin 4.3 g/dL (3.2-4.8) Lipase 29 U/L (12-53) Other Laboratory Tests 04/11/24 03:40 Brief Hx & Hospital Course: HPI BRIEF HOSPITAL COURSE Patient is a 79-year-old male with past medical history of lymphoma diagnosed 7 years ago presented to in due to abdominal pain. Abdominal pain was localized in the yyc-zefurarfpw-qhhpj abdominal area has been going for the past 4 days. it was dull in nature, 8/10 in intensity without any exacerbating or relieving factors and associated with nausea and lack of appetite. On review of systems patient is complaining of rhinorrhea, sore throat, nausea and changed in bowel habits. No bowel movement over 2-3 days. Denies any history of recent weight loss, hematemesis or hematochezia. CT abdomen pelvis showed retroperitoneal lymphadenopathy. CT chest abdomen pelvis with IV contrast was ordered which showed Mediastinal, right supraclavicular, and retroperitoneal lymphadenopathy concerning for malignancy. This could be metastatic or lymphoma.Moderate aortic valve and 3-vessel coronary artery calcifications.Mild ascites. Mild prostatomegaly and mild bladder wall thickening which may be due to chronic bladder outlet obstruction in the setting of prostatomegaly. Correlate with urinalysis if there is clinical concern for cystitis. High position of the right testicle in the right inguinal canal. Vitals: bp: 137/67, Pulse 75, RR: 16. Lab: Na: 125, 127 patient does acknowledge that his sodium has always been a low side. Brief Hospital course This morning during my time with the patient, he denied any abdominal pain nausea vomiting hematochezia. However, patient mentioned that he has had 2 bowel movements this morning. Stool was brown and semi-solid and he feels better and no abdominal pains. I explained to the patient that, I think his abdominal pains is likely due to constipation. Of note the patient has been noted to have lymphadenopathy noted generalized lymphadenopathy noted on his CT scan of the abdomen. Given his history of lymphoma it is viral the patient returns to his Oncology [facility] for evaluation and management. Therefore from a clinical standpoint patient does not have a [place] to be on admission therefore we discharged patient home to follow up with his Oncology [facility]. Na: 127 ( Per patient, his na level has always been low). Echo cardiogram reveal that normal ventricle size. Wall thickness is mildly increased most prominent in the septum. Ejection fraction is normal and is estimated at 65%. There is no gross wall motion abnormalities. There is grade II diastolic dysfunction with evidence of elevated left-sided filling pressure. Examination General Appearance: Alert, Oriented X3, Cooperative, No acute distress HEENT: Atraumatic, PERRLA, EOMI, Mucous membrane moist/pink Respiratory: Clear to auscultation, Normal air movement Cardiovascular: Regular rate, Normal S1, Normal S2, No murmurs, no chest wall tenderness Abdominal: NO distention, no tenderness, bowel sounds present, no scars noted Extremities: No clubbing, No cyanosis, No edema, Normal pulses, No tenderness/swelling Skin: No rashes, No breakdown, No significant lesion Neuro: Normal gait, Normal speech, Strength at 5/5 X4 ext, Normal tone, Sensation intact, Cranial nerves 3-12 NL, Reflexes 2+ Psych/Mental Status: Mental status NL, Mood NL Diagnoses Acute intractable abdominal pain likely due to constipation. Abdominal pain improved after bowel movement with miralax Mild ascites Hypotonic hyponatremia possibly SIADH Hyponatremia ?chronic (person patient was running low na during his chemotherapy) vs hyponatremia in association with possible lymphoma recurrence. Hypertension History of lymphoma possible lymphoma recurrence with metastasis Discharge plan 1. Follow up with the oncology ( Dr. Cohen?) [facility] 2. Follow up with PCP review of the hyponatremia and referral to nephrology 3. Levofloxacin 500mg daily for 7 days 4. Advised to follow up at the discharge clinic in 7 days Case and plan discussed with Dr. Coyne Condition at Discharge: Stable Final Diagnosis/Problems List Acute intractable abdominal pain constipation. abdominal pain improved after bowel movement with miralax Mild ascites Hypotonic hyponatremia possibly SIADH hyponatremia ?chrominc (person patient was running low na during his chemotherapy) vs hyponatremia in association with possible lymphoma recurrency. Hypertension History of lymphoma possible lymphoma recurrence Discharge Disposition: Home Discharge Statement: "Patient was advised to return to the ER or call 911 if any headaches, dizziness, shortness of breath, chest pain, abdominal pain, bleeding, fevers, or worsening of medical condition. Patient was counseled about treatment plan, medications, possible side effects, patientverbalized understanding. All questions were answered to the best of my ability. This discharge took greater then 30 minutes in planning, reviewing documentation, counseling the patient, and discussing with other team members." ASSESSMENT ASSESSMENT Assessment Date of Service: Apr 11, 2024 Billing Provider: CANDIDO COYNE MD Common Visit Codes: 01328-CMY/OBS DISCH DAY >30min JO-ANN CLEMENT RESIDENT Apr 11, 2024 15:54 CANDIDO COYNE MD Apr 13, 2024 06:51
[2024-04-11] MEDS ORDERED: GAB100C GT (20:03)
[2024-04-11] MEDS ORDERED: ATOR20TA50 PO (20:03)
[2024-04-11] MEDS ORDERED: FAMO20TA10 GT (20:03)
[2024-04-11] MEDS ORDERED: AML5T GT (20:03)
[2024-04-11] MEDS ORDERED: BENA10TA16 GT (20:03)
[2024-04-11] MEDS ORDERED: CARV6.2551 PO (20:03)
[2024-04-12 08:55] LABS: Hepatitis B Surface Antigen Negative (Negative)
[2024-04-12 09:12] LABS: Hepatitis A Ab IgM Negative; Hepatitis B Core IgM Negative (Negative); Hepatitis C Antibody Negative (Negative)
[2024-04-12 12:06] LABS: EBV Ab VCA IgG Antibody >600.0 U/mL (0.0-17.9); EBV Ab VCA IgM Antibody <36.0 U/mL (0.0-35.9)
== END 2024-04-11 17:44 | disposition home or self-care (01) | DRG 422 ==
LOC: ER 11:34 → OVERFLOW 22:38 → EAST 04-11 02:40
PROVIDERS: ADMIT Internal Medicine; ATTEND Internal Medicine
DX: E86.0 Dehydration (principal); C85.88 Other specified types of non-Hodgkin lymphoma, lymph nodes of multiple sites; E22.2 Syndrome of inappropriate secretion of antidiuretic hormone; R18.8 Other ascites; K59.00 Constipation, unspecified; Z20.822 Contact with and (suspected) exposure to COVID-19; I10 Essential (primary) hypertension; R59.0 Localized enlarged lymph nodes; Z79.899 Other long term (current) drug therapy
CPT/HCPCS: 36415; 71045; 71260; 74018; 74176; 74177; 80048; 80053; 80074; 83605; 83690; 83930; 84295; 84443; 85025; 86664; 87040; 87070; 87426; 87804; 87880; 93306; 99291; G0378; Q0162